=== PATIENT | female | born 1965 | race Caucasian/White ===

== ENCOUNTER 2016-10-17 14:15 | Emergency (ER) | END 2016-10-17 18:53 | disposition home or self-care (01) | DX: J06.9 Acute upper respiratory infection, unspecified (principal); I10 Essential (primary) hypertension; H10.89 Other conjunctivitis ==

== ENCOUNTER 2018-03-27 22:27 | Emergency (ER) | END 2018-03-28 02:55 | disposition home or self-care (01) ==